=== PATIENT | female | born 2000 | race Caucasian/White ===

== ENCOUNTER 2019-07-26 23:14 | Emergency (ER) | payer BC ==
[2019-07-27 01:41] LABS: Urine Appearance Cloudy; Urine Bilirubin Negative (Negative); Urine Blood 1+ (Negative); Urine Color Yellow; Urine Glucose Negative (Negative); Urine Ketones Negative (Negative); Urine Nitrite Negative (Negative); Urine Protein Negative (Negative); Urine Specific Gravity 1.009 (1.010-1.030); Urine Urobilinogen Negative (Negative)
[2019-07-27 01:50] LABS: Urine Bacteria Absent (Absent); Urine Red Blood Cell Trace(0-2/hpf) (Absent); Urine Squamous Epithelial Cell Present (Absent); Urine White Blood Cell 2+(11-20/hpf) (Absent)
[2019-07-27 03:18] LABS: ABS Eosinophils 0.1 10^3/ul (0-0.6); ABS Lymphocytes 3.5 10^3/ul (1.0-4.8); ABS Monocytes 0.4 10^3/ul (0-0.8); ABS Neutrophils 2.8 10^3/ul (1.5-7.7); Eosinophil % 1.3 %; Hematocrit 39 % (35-47); Hemoglobin 13.3 g/dL (12.0-16.0); Lymphocyte % 51.7 %; Mean Corpuscular HGB Conc 34 g/dL (31-36); Mean Corpuscular Hemoglobin 32 pg (27-31); Mean Corpuscular Volume 92 fL (80-97); Nucleated Red Blood Cells % 0.1; Platelet Count 258 10^3/uL (150-450); Red Cell Distribution Width 14 % (10-15); White Blood Count 6.9 10^3/uL (3.5-10.8)
[2019-07-27 03:21] LABS: INR 0.96 (0.82-1.09)
[2019-07-27 03:34] LABS: ALT 13 U/L (7-52); AST 15 U/L (13-39); Albumin 4.1 g/dL (3.2-5.2); Albumin/Globulin Ratio 1.5 (1-3); Alkaline Phosphatase 69 U/L (34-104); Anion Gap 8 mmol/L (2-11); Blood Urea Nitrogen 7 mg/dL (6-24); CO2 Carbon Dioxide 23 mmol/L (22-32); Calcium 8.8 mg/dL (8.6-10.3); Chloride 106 mmol/L (101-111); EGFR African American 113.9 (>60); EGFR Non-African American 94.2 (>60); Globulin 2.7 g/dL (2-4); Glucose 100 mg/dL (70-100); Potassium 3.9 mmol/L (3.5-5.0); Sodium 137 mmol/L (135-145); Total Protein 6.8 g/dL (6.4-8.9)
[2019-07-27 03:40] LABS: HCG Pregnancy < 0.60 mIU/mL
[2019-07-27] MEDS ORDERED: Sulfamethox/Trimethoprim DS 800/160* TAB PO ONE (04:08)
--- NOTE | 2019-07-27 04:10 | ED ---
GI/ HPI - HPI Summary HPI Summary: Patient is a 19 y/o F presenting to [facility] with complaints of bilateral lower back pain and abdominal pain. She states that the pain onset around 2200 tonight. no f/c. no n/v/d. pain is suprapubic. About one hour later, she states that the pain had mostly resolved and reports that she was only experiencing a mild, dull pain. She denies previous similar episodes. did not take anything for pain. Patient is on control and currently is on her menstrual cycle as well. PSHx of tooth surgery reported. Meds: Patient takes biotin supplements Allergies: Amoxicillin soc hx: She reports marijuana usage but denies alcohol and substance usage. No FMHx of GI issues but she notes that her mother has breast cancer. - History of Current Complaint Chief Complaint: EDFlankPain Time Seen by Provider: 07/27/19 03:26 Stated Complaint: POSS KIDNEY STONE PER PT Hx Obtained From: Patient Onset/Duration: Started Hours Ago, Still Present Timing: Lasting Hours Severity: Mild Current Severity: Mild Pain Intensity: 1 Pain Characteristics: Dull Associated Signs and Symptoms: Positive: Back Pain, Abdominal Pain. Negative: Nausea, Vomiting, Fever - Allergy/Home Medications Allergies/Adverse Reactions: Allergies Allergy/AdvReac Type Severity Reaction Status Date / Time amoxicillin Allergy Hives Verified 07/27/19 03:16 Home Medications: Home Medications Sulfamethox/Trimethoprim DS* [Bactrim DS 800/160 TAB*] 1 tab PO BID #10 tab [Rx] l-Norgest/E.estradiol-E.estrad [Amethia] 1 tab PO DAILY 07/27/19 [History Confirmed 07/27/19] PMH/Surg Hx/FS Hx/Imm Hx Infectious Disease History: No Infectious Disease History: Denies: Traveled Outside the [place] in Last 30 Days - Family History Known Family History: Positive: Cardiac Disease - [place], Other - Breast cancer - Social History Alcohol Use: None Substance Use Type: Reports: Marijuana Smoking Status (MU): Never Smoked Tobacco Review of Systems - ROS Summary Review of Systems Summary: Home Medications Medication Instructions Recorded Confirmed Type Sulfamethox/Trimethoprim DS* 1 tab PO BID #10 tab 07/27/19 Rx [Bactrim DS 800/160 TAB*] l-Norgest/E.estradiol-E.estrad 1 tab PO DAILY 07/27/19 07/27/19 History [Amethia] Negative: Fever Positive: Abdominal Pain. Negative: Vomiting, Nausea Positive: Myalgia - back pain All Other Systems Reviewed And Are Negative: Yes Physical Exam - Summary Physical Exam Summary: General: Well-developed, Well-nourished female. No acute distress. HEENT: Normocephalic, Atraumatic. Eyes: Conjuctiva normal, PERRL. Oropharynx: Clear, mucous membranes moist, (-) exudates. Neck: Soft, FROM, (-) lymphadenopathy, (-) thyromegaly, (-) JVD. Cardiovascular: Normal sinus rhythm, (-) murmur. Lungs: Clear to auscultation bilaterally (-) wheezes, (-) rales, (-) rhonchi. Abdomen: Soft, mild suprapubic tenderness, non-distended, (-) organomegaly, normal bowel sounds. Back: (-) CVA tenderness Extremities: No edema. Skin: Warm, dry, (-) rash. Neuro: Alert and oriented x3, moves all extremities equally. No ataxia. No gait disturbance. No sensory deficit. Normal strength, normal sensation. Psychiatric: Mood normal, affect normal. Triage Information Reviewed: Yes Vital Signs On Initial Exam: Initial Vitals Temp Pulse Resp BP Pulse Ox 98.3 F 71 20 134/86 100 07/26/19 23:20 07/26/19 23:20 07/26/19 23:20 07/26/19 23:20 07/26/19 23:20 Vital Signs Reviewed: Yes Procedures - Sedation Patient Received Moderate/Deep Sedation with Procedure: No Diagnostics - Vital Signs Vital Signs Temp Pulse Resp BP Pulse Ox 07/27/19 03:26 60 123/79 100 07/27/19 03:25 64 100 07/27/19 03:07 51 120/59 99 07/27/19 01:46 99.1 F 77 20 114/61 100 07/26/19 23:20 98.3 F 71 20 134/86 100 - Laboratory Lab Results: Lab Results 07/27/19 07/27/19 07/27/19 Range/Units 00:46 03:01 03:01 WBC 6.9 (3.5-10.8) 10^3/uL RBC 4.20 (3.70-4.87) 10^6 /uL Hgb 13.3 (12.0-16.0) g/dL Hct 39 (35-47) % MCV 92 (80-97) fL MCH 32 H (27-31) pg MCHC 34 (31-36) g/dL RDW 14 (10-15) % Plt Count 258 (150-450) 10^3/uL MPV 7.0 L (7.4-10.4) fL Neut % (Auto) 41.0 % Lymph % (Auto) 51.7 % Duval % (Auto) 5.5 % Eos % (Auto) 1.3 % Baso % (Auto) 0.5 % Absolute Neuts (auto) 2.8 (1.5-7.7) 10^3/ul Absolute Lymphs (auto) 3.5 (1.0-4.8) 10^3/ul Absolute Monos (auto) 0.4 (0-0.8) 10^3/ul Absolute Eos (auto) 0.1 (0-0.6) 10^3/ul Absolute Basos (auto) 0.0 (0-0.2) 10^3/ul Absolute Nucleated RBC 0.0 10^3/ul Nucleated RBC % 0.1 INR (Anticoag Therapy) (0.82-1.09) Sodium 137 (135-145) mmol/L Potassium 3.9 (3.5-5.0) mmol/L Chloride 106 (101-111) mmol/L Carbon Dioxide 23 (22-32) mmol/L Anion Gap 8 (2-11) mmol/L BUN 7 (6-24) mg/dL Creatinine 0.78 (0.51-0.95) mg/dL Est GFR ( Amer) 113.9 (>60) Est GFR (Non-Af Amer) 94.2 (>60) BUN/Creatinine Ratio 9.0 (8-20) Glucose 100 (70-100) mg/dL Calcium 8.8 (8.6-10.3) mg/dL Total Bilirubin 0.20 (0.2-1.0) mg/dL AST 15 (13-39) U/L ALT 13 (7-52) U/L Alkaline Phosphatase 69 (34-104) U/L Total Protein 6.8 (6.4-8.9) g/dL Albumin 4.1 (3.2-5.2) g/dL Globulin 2.7 (2-4) g/dL Albumin/Globulin Ratio 1.5 (1-3) Beta HCG, Quant < 0.60 mIU/mL Urine Color Yellow Urine Appearance Cloudy Urine pH 5.0 (5-9) Ur Specific Meadow 1.009 L (1.010-1.030) Urine Protein Negative (Negative) Urine Ketones Negative (Negative) Urine Blood 1+ A (Negative) Urine Nitrate Negative (Negative) Urine Bilirubin Negative (Negative) Urine Urobilinogen Negative (Negative) Ur Leukocyte Esterase 1+ A (Negative) Urine WBC (Auto) 2+(11-20/hpf) A (Absent) Urine RBC (Auto) Trace(0-2/hpf) (Absent) Ur Squamous Epith Cells Present A (Absent) Urine Bacteria Absent (Absent) Urine Glucose Negative (Negative) 07/27/19 Range/Units 03:01 WBC (3.5-10.8) 10^3/uL RBC (3.70-4.87) 10^6 /uL Hgb (12.0-16.0) g/dL Hct (35-47) % MCV (80-97) fL MCH (27-31) pg MCHC (31-36) g/dL RDW (10-15) % Plt Count (150-450) 10^3/uL MPV (7.4-10.4) fL Neut % (Auto) % Lymph % (Auto) % Duval % (Auto) % Eos % (Auto) % Baso % (Auto) % Absolute Neuts (auto) (1.5-7.7) 10^3/ul Absolute Lymphs (auto) (1.0-4.8) 10^3/ul Absolute Monos (auto) (0-0.8) 10^3/ul Absolute Eos (auto) (0-0.6) 10^3/ul Absolute Basos (auto) (0-0.2) 10^3/ul Absolute Nucleated RBC 10^3/ul Nucleated RBC % INR (Anticoag Therapy) 0.96 (0.82-1.09) Sodium (135-145) mmol/L Potassium (3.5-5.0) mmol/L Chloride (101-111) mmol/L Carbon Dioxide (22-32) mmol/L Anion Gap (2-11) mmol/L BUN (6-24) mg/dL Creatinine (0.51-0.95) mg/dL Est GFR ( Amer) (>60) Est GFR (Non-Af Amer) (>60) BUN/Creatinine Ratio (8-20) Glucose (70-100) mg/dL Calcium (8.6-10.3) mg/dL Total Bilirubin (0.2-1.0) mg/dL AST (13-39) U/L ALT (7-52) U/L Alkaline Phosphatase (34-104) U/L Total Protein (6.4-8.9) g/dL Albumin (3.2-5.2) g/dL Globulin (2-4) g/dL Albumin/Globulin Ratio (1-3) Beta HCG, Quant mIU/mL Urine Color Urine Appearance Urine pH (5-9) Ur Specific Meadow (1.010-1.030) Urine Protein (Negative) Urine Ketones (Negative) Urine Blood (Negative) Urine Nitrate (Negative) Urine Bilirubin (Negative) Urine Urobilinogen (Negative) Ur Leukocyte Esterase (Negative) Urine WBC (Auto) (Absent) Urine RBC (Auto) (Absent) Ur Squamous Epith Cells (Absent) Urine Bacteria (Absent) Urine Glucose (Negative) Result Diagrams: 07/27/19 03:01 07/27/19 03:01 Lab Statement: Any lab studies that have been ordered have been reviewed, and results considered in the medical decision making process. GIGU Course/Dx - Course Course Of Treatment: 19 year old female presents with bilateral back pain. radiated to suprapubic area. started at 10pm. pain has improved. mild suprapubic tenderness on exam. afebrile. normal white count. +UTI. patient started on Bactrim. advised plenty of fluids. follow up with PCP. follow up sooner for any worsening symptoms - Diagnoses Provider Diagnoses: UTI (urinary tract infection) Discharge ED - Sign-Out/Discharge Documenting (check all that apply): Patient Departure - discharge - Discharge Plan Condition: Stable Disposition: HOME Prescriptions: Sulfamethox/Trimethoprim DS* [Bactrim DS 800/160 TAB*] 1 tab PO BID #10 tab Patient Education Materials: Urinary Tract Infection in Women (ED) Referrals: Sreedhar Linares MD [Primary Care Provider] - 3 Days Additional Instructions: PLEASE RETURN TO ED FOR ANY NEW OR WORSENING SYMPTOMS. PLEASE FOLLOW UP WITH YOUR PRIMARY CARE PHYSICIAN WITHIN THREE DAYS. - Billing Disposition and Condition Condition: STABLE Disposition: Home - Attestation Statements Document Initiated by Whit: Yes Documenting Scribe: DHAVAL ULLOA Provider For Whom Whit is Documenting (Include Credential): DOROTA GRAY MD Scribe Attestation: I, DHAVAL ULLOA, scribed for DOROTA GRAY MD on 07/28/19 at 0049. Scribe Documentation Reviewed: Yes Provider Attestation: The documentation as recorded by the DHAVAL wolff accurately reflects the service I personally performed and the decisions made by me, DOROTA GRAY MD Status of Scribe Document: Viewed
[2019-07-27 05:26] VITALS: BP 117/70
== END 2019-07-27 05:24 | disposition home or self-care (01) ==
LOC: ED 23:14
DX: N39.0 Urinary tract infection, site not specified (principal); Z88.0 Allergy status to penicillin
CPT/HCPCS: 36415; 80053; 81003; 81015; 84702; 85025; 85610; 87086; 99283; A9270-GY